=== PATIENT | female | born 1960 | race Caucasian/White ===

== ENCOUNTER 2017-03-29 10:43 | Day surgery (SDC) | payer OTHER ==
[2017-03-29] MEDS: SOD CHLORIDE 0.9% 1,000 ML IV (12:00)
[2017-03-29] MEDS: CEFAZOLIN 2 GM/50 ML (PMX) 50 ML IVPB (12:00)
[2017-03-29 12:14] LABS: ADD MAN DIFF? NO
[2017-03-29 12:17] LABS: BASOPHILS % 0.4 % (0.0-2.0); EOSINOPHILS % 0.5 % (0.0-7.0); HEMATOCRIT 31.6 % (37.0-47.0); HEMOGLOBIN 10.1 g/dl (12.0-16.0); LYMPHOCYTES % 26.3 % (15.0-51.0); MEAN CORPUSCULAR HEMOGLOBIN 29.5 pg (29.0-33.0); MEAN CORPUSCULAR VOLUME 92.4 fl (82.0-101.0); MEAN PLATELET VOLUME 8.4 fl (7.4-10.4); MONOCYTE # 0.4 10^3/ul (0.3-0.9); MONOCYTES % 4.9 % (0.0-11.0); NEUTROPHIL # 5.1 10^3/ul (1.6-7.5); NEUTROPHILS % 67.2 % (39.0-77.0); PLATELET COUNT 319 10^3/UL (140-415); RED BLOOD COUNT 3.42 10^6/ul (4.20-5.40); RED CELL DISTRIBUTION WIDTH 14.9 % (11.5-14.5)
[2017-03-29 12:17] LABS: WHITE BLOOD COUNT 7.6 10^3/ul (4.8-10.8)
[2017-03-29 12:37] LABS: ALANINE AMINOTRANSFERASE 34 IU/L (13-69); ALBUMIN 4.3 g/dl (3.3-4.9); ALBUMIN/GLOBULIN RATIO 1.26; ALKALINE PHOSPHATASE 88 IU/L (42-121); ANION GAP 14 (8-16); ASPARTATE AMINO TRANSFERASE 22 IU/L (15-46); BILIRUBIN,INDIRECT 0.2 mg/dl (0-1.1); BILIRUBIN,TOTAL 0.2 mg/dl (0.2-1.3); CARBON DIOXIDE 27 mmol/L (21-31); CHLORIDE 105 mmol/L (97-110); GLUCOSE 100 mg/dl (70-220); TOTAL PROTEIN 7.7 g/dl (6.1-8.1)
[2017-03-29 12:38] LABS: BLOOD UREA NITROGEN 9 mg/dl (7-20); CREATININE 0.65 mg/dl (0.44-1.00); POTASSIUM 4.3 mmol/L (3.5-5.1); SODIUM 142 mmol/L (135-144)
[2017-03-29 12:42] LABS: INR 0.94; PROTIME 12.7 Sec (11.9-14.9)
[2017-03-29 12:43] LABS: PARTIAL THROMBOPLASTIN TIME 33.9 Sec (25.0-35.0)
[2017-03-29 14:48] LABS: CREATININE 0.63 mg/dl (0.44-1.00)
[2017-03-29 15:18] LABS: CARCINOEMBRYONIC ANTIGEN 0.6 ng/ml (0.0-5.0)
[2017-03-29] MEDS ORDERED: ISOSULFAN BLUE 1% 5 ML INJ SC (15:44)
[2017-03-29] MEDS ORDERED: ROCURONIUM 50 MG INJ (15:56)
[2017-03-29] MEDS ORDERED: PROPOFOL 20 ML (15:56)
[2017-03-29] MEDS ORDERED: LIDOCAINE 1% (MDV) 20 ML INJ (15:56)
[2017-03-29] MEDS ORDERED: MIDAZOLAM 1 MG/ML 2 ML INJ (15:56)
[2017-03-29] MEDS ORDERED: PHENYLephrine (100 MCG/ML) 5ML SYG (16:09)
[2017-03-29] MEDS ORDERED: CEFAZOLIN 1 GM INJ (16:12)
[2017-03-29] MEDS ORDERED: FAMOTIDINE 20 MG INJ (16:18)
[2017-03-29] MEDS ORDERED: ONDANSETRON 4 MG INJ (16:18)
[2017-03-29] MEDS ORDERED: DEXAMETHASONE 4 MG/ML 1 ML INJ (16:18)
[2017-03-29] MEDS: ISOSULFAN BLUE 1% 5 ML INJ SC (16:37)
[2017-03-29] MEDS ORDERED: SUGAMMADEX SODIUM 200 MG/2 ML VIAL IV ×2 (17:12→17:15)
[2017-03-29] MEDS ORDERED: ACETAMINOPHEN 1000MG/100ML IV 100 ML (17:25)
[2017-03-29] MEDS ORDERED: ONDANSETRON 4 MG INJ IV (17:30)
[2017-03-29] MEDS: HYDROmorphONE (0.2 MG/ML) 10ML SYG IV ×2 (17:38→17:53)
[2017-03-29] MEDS: KETOROLAC 30 MG INJ IV (17:40)
[2017-03-29] MEDS: ONDANSETRON 4 MG INJ IV (17:40)
[2017-03-29] MEDS: morphine 2 MG INJ IV ×3 (18:34→22:13)
[2017-03-29] MEDS: D5W-0.45 NACL + KCL 20 MEQ 1,000 ML IV (20:54)
[2017-03-29] MEDS: ACETAMINOPHEN 1000MG/100ML IV 100 ML IVPB (23:44)
[2017-03-30] MEDS: D5W-0.45 NACL + KCL 20 MEQ 1,000 ML IV ×3 (05:17→17:11)
[2017-03-30] MEDS: ACETAMINOPHEN 1000MG/100ML IV 100 ML IVPB ×2 (05:52→11:35)
[2017-03-30] MEDS: morphine 2 MG INJ IV ×2 (08:38→15:24)
== END 2017-03-30 18:45 | disposition home or self-care (01) ==
LOC: SDS 10:43 → MS1 21:44 → SDS 10:43 → MS1 17:11 → SDS 18:31 → MS1 17:11 → SDS 03-30 18:45
DX: D05.12 Intraductal carcinoma in situ of left breast (principal); C77.3 Secondary and unspecified malignant neoplasm of axilla and upper limb lymph nodes; E66.01 Morbid (severe) obesity due to excess calories; Z68.41 Body mass index [BMI] 40.0-44.9, adult
CPT/HCPCS: 19301; 71045; 80053; 82378; 82565; 85025; 85610; 85730; 88307; 93005